=== PATIENT | male | born 1975 | race Caucasian/White ===

== ENCOUNTER 2017-01-07 12:53 | Emergency (ER) | payer OTHER ==
[2017-01-07 13:00] VITALS: BP 170/90; PULSE 70; RESP 14; TEMP 97.7; O2SAT 97
--- NOTE | 2017-01-07 13:27 | UCPHY ---
H & P Time Seen by Provider: 01/07/17 12:57 Patient Type: New HPI/ROS: CHIEF COMPLAINT: Head laceration HISTORY OF PRESENT ILLNESS: The patient is a 41-year-old male who presents emergency department after cutting his left forehead. The patient was playing with his cat when he turned his head suddenly. Cut his head on a bar iglesias. He did not lose consciousness. He has mild headache. No nausea or vomiting. No neck pain. No focal neurologic deficits. Bleeding is controlled. REVIEW OF SYSTEMS: My complete review of systems is negative except as mentioned in the HPI. Past Medical/Surgical History: Noncontributory Smoking Status: Former smoker Physical Exam: GENERAL: Well-appearing, in no acute distress, alert. HEAD: 2 cm irregular laceration on the left brow. No foreign body. EYES: PERRLA, EOMI, normal to inspection. ENT: Airway intact, normal external examination. NECK: The trachea is midline. There is no crepitus. The C-spine is nontender. NEXUS criteria is negative (no midline tenderness, no distracting injury, no altered mental status, no recent alcohol use, no focal neurologic deficit). RESPIRATORY: no respiratory distress CVS: well perfused SKIN: Normal color, warm, dry. No pallor or diaphoresis. EXTREMITIES: Atraumatic NEURO/PSYCH: Alert and oriented x 3, GCS 15, normal mood and affect, normal motor sensory exam. Constitutional: Initial Vital Signs Temperature (C) 36.5 C 01/07/17 12:59 Heart Rate 70 01/07/17 12:59 Respiratory Rate 14 01/07/17 12:59 Blood Pressure 170/90 H 01/07/17 12:59 O2 Sat (%) 97 01/07/17 12:59 O2 Delivery Mode Room Air Allergies/Adverse Reactions: No Known Allergies Allergy (Unverified 01/07/17 13:00) Medical Decision Making Procedures: Procedure: Laceration repair. Verbal consent was obtained from the patient. The 2 cm laceration on the left brow did not require anesthesia. The wound was irrigated, draped and explored to its base with a gloved finger. There were no deep structures involved. The wound was repaired with skin glue . The wound repair was simple . The procedure was performed by myself. ED Course/Re-evaluation: In urgent care discussed treatment options with the patient. He had his wound cleaed. Differential Diagnosis: My differential includes but is not limited to laceration, contusion, subarachnoid hemorrhage, subdural hematoma, epidural hematoma, spinal injury, foreign body Departure - Departure Disposition: Home, Routine, Self-Care Clinical Impression: Forehead laceration Qualifiers: Encounter type: initial encounter Qualified Code(s): S01.81XA - Laceration without foreign body of other part of head, initial encounter Condition: Good Instructions: Laceration (ED), Head Injury (ED) Additional Instructions: Return with increasing headache vomiting, visual change, or any other concerns. Referrals: Haylie Grier MD [Medical Doctor] - As per Instructions - PQRS PQRS Measurement: My PQRS negative my PQRS negative my PQRS negative my PQRS negative 134: Depression screening and followup, PRIME MD-PHQ2 (12 years and older) Over the last 2 weeks, how often have you been bothered by any of the following problems? 1. Feeling down, depressed, or hopeless? 2. Little interest or pleasure in doing things? Patient answered no to both 1 and 2 130: Documentation of medications. Reviewed all patient medications, doses, route and frequency. 226: Do you smoke? No.
[2017-01-07] MEDS ORDERED: SKIN ADHESIVE (DERMABOND) 1 EACH TP ONE (13:36)
== END 2017-01-07 14:07 | disposition home or self-care (01) ==
LOC: CED 12:53
DX: S01.81XA Laceration without foreign body of other part of head, initial encounter (principal); Z87.891 Personal history of nicotine dependence; W22.8XXA Striking against or struck by other objects, initial encounter
CPT/HCPCS: 12011-PO; 99203-PO; G0463-PO